=== PATIENT | female | born 1970 | race Caucasian/White ===

== ENCOUNTER 2023-06-04 06:25 | Emergency (ER) | payer BC, SELFPAY ==
[2023-06-04 06:32] VITALS: BP 162/93; PULSE 88; RESP 16; TEMP 36.8; O2SAT 100; BMI 36.0
[2023-06-04] MEDS: ADACEL DIPH,PERTUSS(ACELL),TET VAC/PF 0.5 ML ADULT SYRINGE IM (07:56)
[2023-06-04] MEDS: BACITRACIN 0.9 GM PACKET 1 PACKET TOPICAL (07:56)
--- NOTE | 2023-06-04 08:39 | ED.GENADUL1 ---
HPI - General Adult General Chief complaint: Animal Bite Stated complaint: RT EYE CUT Time Seen by Provider: 06/04/23 07:38 Source: patient Mode of arrival: walk-in Limitations: no limitations History of Present Illness HPI narrative: Patient is a 53-year-old female who is presenting to the Emergency Room with chief complaint of a laceration to the right upper eyelid. Patient has a 1.25 cm linear laceration to the right upper eyelid, very superficial. Patient does not know the last time when she had a initial tetanus shot. Patient stated this was her dog. Had a tooth that accidentally had scratched her right upper eyelid. Patient has a new cough. Home. Patient's dog's immunizations are up-to-date. Patient is not diabetic. Patient has no trauma to the right eyeball. Patient came in to see if sutures are needed or not. No other acute complaints. No active bleeding. . All systems are negative except as noted/marked. All systems reviewed and otherwise negative. . Nurses note and vital signs reviewed and patient is not hypoxic. General: The patient appears well and in no apparent distress. Patient is resting comfortably on cart. Patient is not toxic, lethargic, or listless Skin: Warm, dry, no pallor noted. There is no rash noted. No petechiae, purpura. Patient has 1.25 cm superficial linear laceration to the right upper eyelid. Approximately 1 mm deep, very superficial. Patient currently has no rash or hives, the patient's had many questions about this at discharge discussion, see MDM Head: Normocephalic, atraumatic Eye: Normal conjunctiva, no drainage, EOMI. PERRL Ears, Nose, Mouth, and Throat: oral mucosa is moist. Nares patent. Mouth without vesicles. Cardiovascular: Regular Rate and Rhythm, no murmur, gallop, rub Respiratory: Patient is in no distress, no accessory muscle use, lungs are clear to auscultation, no wheezing, rales or rhonchi Musculoskeletal: Patient has full range of motion of all of the extremities, no motor, sensory, or focal neurological deficits Neurological: A&O x3, normal speech Psychiatric: Cooperative Related Data Home Medications Medication Instructions Recorded Confirmed celecoxib 100 mg capsule 100 mg PO Q24H 06/04/23 06/04/23 losartan 50 mg-hydrochlorothiazide 1 tab PO DAILY 12/20/23 12/20/23 12.5 mg tablet Previous Rx's Medication Instructions Recorded amoxicillin-potassium clavulanate 1 tab PO BID 7 days #14 tabs 06/04/23 1,000 mg-62.5 mg tablet,ext.rel 12hr (Augmentin XR) Allergies Allergy/AdvReac Type Severity Reaction Status Date / Time No Known Drug Allergies Allergy Verified 06/04/23 06:36 PFSH PFSH Social History Smoking status: Never smoker Exam Constitutional Vital Signs, click to edit/add: Last Vital Signs Temp 98.3 F 06/04/23 06:32 Pulse 88 06/04/23 06:32 Resp 16 06/04/23 06:32 BP 162/93 H 06/04/23 06:32 Pulse Ox 100 06/04/23 06:32 Course Vital Signs Vital signs: Vital Signs Temperature 98.3 F 06/04/23 06:32 Pulse Rate 88 06/04/23 06:32 Respiratory Rate 16 06/04/23 06:32 Blood Pressure 162/93 H 06/04/23 06:32 Pulse Oximetry 100 06/04/23 06:32 Temperature 98.3 F 06/04/23 06:32 Pulse Rate 88 06/04/23 06:32 Respiratory Rate 16 06/04/23 06:32 Blood Pressure 162/93 H 06/04/23 06:32 Pulse Oximetry 100 06/04/23 06:32 Medical Decision Making MDM Narrative Medical decision making narrative: Patient was recommended to have 2 or 3 sutures placed. Help close a laceration that is extremely superficial, 1 mm deep, 1.25 cm long. There are option was no sutures, healing with secondary intention and topical antibiotic use to help with healing and prevent infection. Patient opted to have no sutures. Education on healing, using anabolic ointment, and patient was placed on prophylactic antibiotics secondary to a toothache cause a superficial laceration to the right upper eyelid. Patient has equal ocular motion. No vision changes. Patient had her tetanus updated as well. Patient will follow-up with PCP. At discharge patient stated she's been having intermittent rash/hives on Friday and yesterday for unknown reason. Patient has taken Benadryl which helped relieve his symptoms within 45 minutes. Patient has not used Pepcid. She has no rash this time. No known new substance. Patient is in the middle of finding a new physician, her physician a cancer and is retiring. Education using Pepcid, antihistamines [id number] refresh has returned. No questions at discharge. She has no rash at this time. Discharge Plan Discharge Chief Complaint: Animal Bite Clinical Impression: Bite by animal, Dog bite Patient Disposition: Home, Self-Care Condition: Fair Prescriptions / Home Meds: New amoxicillin-pot clavulanate [Augmentin XR] 1,000-62.5 mg tablet extended release 12 hr 1 tab PO BID 7 Days Qty: 14 0RF No Action losartan-hydrochlorothiazide 50-12.5 mg tablet 1 tab PO DAILY celecoxib 100 mg capsule 100 mg PO Q24H Instructions: Animal Bite (ED) Additional Instructions: Use topical antibiotic ointment 4-5 times a day to help prevent infection and also help with healing. Tetanus shot has been updated. If any significant redness, drainage, or any other acute concerns her, please follow-up with PCP or return to the Emergency Room. If you're having the rash and we discussed at length at bedside, he can use Pepcid and either Claritin or Zyrtec in the morning and Pepcid and Benadryl nighttime to help with itching, rash or redness. Antibiotic pill has been prescribed prophylactically to help prevent infection. Stand Alone Forms: Portal Instructions Referrals: Physician,Non-Staff, [Primary Care Provider] - 1 week Discharge Date/Time: 06/04/23 08:04
== END 2023-06-04 08:04 | disposition home or self-care (01) ==
PROVIDERS: Emergency Provider Emergency Medicine; Family Provider Family Medicine
DX: S00.271A Other superficial bite of right eyelid and periocular area, initial encounter (principal); W54.0XXA Bitten by dog, initial encounter; Z23 Encounter for immunization; Z79.899 Other long term (current) drug therapy
CPT/HCPCS: 90471; 90715; 99284